=== PATIENT | female | born 1990 | race Caucasian/White ===

== ENCOUNTER 2021-10-18 07:48 | Emergency (ER) | payer MEDICAID | END 2021-10-18 09:44 | disposition home or self-care (01) | LOC: JD.ED 07:48 | DX: L25.9 Unspecified contact dermatitis, unspecified cause (principal); Z88.0 Allergy status to penicillin | CPT/HCPCS: 99282 ==

== ENCOUNTER 2022-02-28 12:21 | Emergency (ER) | payer MEDICAID ==
[2022-02-28] MEDS ORDERED: HYDROmorphone 0.5 MG/0.5 ML Syringe IM ONE ×2 (15:36→16:49)
[2022-02-28] MEDS ORDERED: Orphenadrine 100 MG Tab.ER PO ONE (15:36)
== END 2022-02-28 18:08 | disposition home or self-care (01) ==
LOC: JD.ED 12:21
DX: M54.42 Lumbago with sciatica, left side (principal); Z88.0 Allergy status to penicillin; W22.8XXA Striking against or struck by other objects, initial encounter; Y92.69 Other specified industrial and construction area as the place of occurrence of the external cause
CPT/HCPCS: 96372; 99283; A9270; J1170

== ENCOUNTER 2022-03-06 15:01 | Emergency (ER) | payer MEDICAID ==
[2022-03-06] MEDS ORDERED: Ketorolac 60 MG/2 ML SDV IM ONE (15:59)
[2022-03-06] MEDS ORDERED: HYDROmorphone 1 MG/ML Syringe IM ONE (15:59)
== END 2022-03-06 16:53 | disposition home or self-care (01) ==
LOC: JD.ED 15:01
DX: M54.42 Lumbago with sciatica, left side (principal); M54.41 Lumbago with sciatica, right side; Z88.0 Allergy status to penicillin; Z86.16 Personal history of COVID-19
CPT/HCPCS: 96372; 99283; J1170; J1885